=== PATIENT | female | born 2000 | race Caucasian/White ===

== ENCOUNTER 2024-08-02 18:46 | Inpatient (IN) | payer OTHER ==
[2024-08-02 19:44] VITALS: BMI 21.9
[2024-08-02] MEDS ORDERED: BENZOCAINE/MENTHOL (CHLORASEPTIC ) LOZENGE MM PRN (20:46)
[2024-08-02] MEDS ORDERED: BISMUTH SUBSALICYLATE 524 MG/30 ML PO PRN (20:46)
[2024-08-02] MEDS ORDERED: LOPERAMIDE HCL 2 MG CAPSULE PO PRN (20:46)
[2024-08-02] MEDS ORDERED: POLYETHYLENE GLYCOL (HEALTHYLAX) 3350 17 GM PACKET PO PRN (20:46)
[2024-08-02] MEDS ORDERED: MAG HYDROX/AL HYDROX/SIMETH 30 ML UNIT-DOSE CUP PO PRN (20:46)
[2024-08-02] MEDS ORDERED: DICYCLOMINE HCL 10 MG CAPSULE PO PRN (20:46)
[2024-08-02] MEDS ORDERED: guaiFENesin 600 MG TABLET.ER (FP) PO PRN (20:46)
[2024-08-02] MEDS ORDERED: NALOXONE (NARCAN) HCL 4 MG/0.1 ML SPRAY NS PRN (20:46)
[2024-08-02] MEDS ORDERED: ACETAMINOPHEN 325 MG TABLET (FP) PO PRN (20:46)
[2024-08-02] MEDS ORDERED: ONDANSETRON *ODT* 4 MG TABLET SL PRN (20:46)
[2024-08-02] MEDS ORDERED: BENZONATATE 200 MG CAPSULE PO PRN (20:46)
[2024-08-02] MEDS ORDERED: cloNIDine HCL 0.1 MG TABLET PO PRN (20:49)
[2024-08-02] MEDS ORDERED: methaDONE HCL 10 MG TABLET (FOR DETOX USE ONLY) PO PRN (20:49)
[2024-08-02] MEDS ORDERED: MELATONIN 5 MG TABLETS ONE (21:17)
[2024-08-02] MEDS ORDERED: methaDONE HCL 10 MG TABLET (FOR DETOX USE ONLY) ONE (21:17)
[2024-08-02] MEDS: methaDONE HCL 10 MG TABLET (FOR DETOX USE ONLY) PO ONE (21:22)
[2024-08-02] MEDS: THIAMINE 100 MG TABLET PO SCH (21:29)
[2024-08-02] MEDS: MELATONIN 5 MG TABLETS PO SCH (21:29)
[2024-08-02] MEDS: METHOCARBAMOL 500 MG TABLET PO PRN (21:53)
[2024-08-02] MEDS: IBUPROFEN 600 MG TABLET (FP) PO PRN (21:53)
[2024-08-03] MEDS: PRENATAL VITAMINS W/ FOLIC ACID TABLET (FP) PO SCH (09:04)
[2024-08-03 14:16] LABS: HEMATOCRIT 49.1 % (32.4-45.2); HEMOGLOBIN 15.9 GM/dL (10.7-15.3); MCH 28.8 pg (25.7-33.7); MCHC 32.5 g/dl (32.0-36.0); MEAN CELL VOLUME 88.6 fl (80-96); MEAN PLT VOLUME 7.6 fl (7.5-11.1); PLATELET COUNT 417 10^3/uL (134-434); RBC 5.54 M/mm3 (3.60-5.2)
[2024-08-03 14:58] LABS: CHLORIDE 102 mmol/L (98-107); POTASSIUM 4.6 mmol/L (3.5-5.1); SODIUM 136 mmol/L (136-145)
[2024-08-03 15:08] LABS: ALBUMIN 4.5 g/dl (3.4-5.0); ANION GAP 6 mmol/L (4-13); CALCIUM 10.3 mg/dL (8.5-10.1); CO2 29 mmol/L (21-32); GLUCOSE,RANDOM 88 mg/dL (74-106)
[2024-08-03 15:11] LABS: CREATININE 1.2 mg/dL (0.55-1.3); SGOT/AST 22 U/L (15-37); SGPT/ALT 21 U/L (13-61)
[2024-08-03 15:13] LABS: BILIRUBIN,TOTAL 0.7 mg/dL (0.2-1); TOT PROT 7.8 g/dl (6.4-8.2)
[2024-08-03 15:14] LABS: ALK PHOS 103 U/L (45-117)
[2024-08-03] MEDS: MELATONIN 5 MG TABLETS PO SCH (22:05)
[2024-08-03] MEDS: BUPRENORPHINE/NALOXONE 0.5 MG/0.125 MG FILM SL ONE (22:05)
[2024-08-04] MEDS: IBUPROFEN 400 MG TABLET (FP) PO PRN (07:52)
[2024-08-04] MEDS ORDERED: BUPRENORPHINE/NALOXONE 8 MG/2 MG FILM PACKET SL SCH (10:00)
[2024-08-04] MEDS: methaDONE HCL 10 MG TABLET (FOR DETOX USE ONLY) PO ONE (10:09)
[2024-08-04] MEDS: BUPRENORPHINE/NALOXONE 0.5 MG/0.125 MG FILM SL SCH (10:09)
[2024-08-04] MEDS: MAGNESIUM HYDROX 2400MG/30ML ORAL SUSPENSION 30 ML CUP PO PRN (10:31)
[2024-08-04] MEDS: NICOTINE POLACRILEX 2 MG GUM BC PRN (19:58)
[2024-08-05] MEDS: QUEtiapine FUMARATE 25 MG TABLET PO SCH (00:03)
[2024-08-05] MEDS: SUVOREXANT 10 MG TABLET PO PRN (00:04)
[2024-08-05] MEDS: BUPRENORPHINE/NALOXONE 2 MG/0.5 MG FILM PACKET SL SCH (09:37)
[2024-08-05] MEDS: NICOTINE 21 MG/24 HOURS TOPICAL PATCH TD SCH (12:58)
[2024-08-05] MEDS: hydrOXYzine PAMOATE 25 MG CAPSULE (FP) PO PRN (23:48)
[2024-08-06] MEDS: methaDONE HCL 10 MG TABLET (FOR DETOX USE ONLY) PO ONE (09:18)
[2024-08-06] MEDS: BUPRENORPHINE/NALOXONE 4 MG/1 MG FILM PACKET SL SCH (09:19)
[2024-08-07 06:50] VITALS: TEMP 97.6
[2024-08-07] MEDS: BUPRENORPHINE/NALOXONE 8 MG/2 MG FILM PACKET SL SCH (09:50)
[2024-08-07 09:52] VITALS: BP 133/76; PULSE 86; RESP 28
[2024-08-07] MEDS ORDERED: BUPRENORPHINE/NALOXONE 8 MG/2 MG FILM PACKET SL SCH (10:00)
[2024-08-07] MEDS: NALOXONE (NYS OPIOID OVERDOSE PROGRAM) 4 MG/0.1 ML SPRAY NS SCH (10:39)
[2024-08-07 11:12] LABS: BASO % 0.8 % (0-2.0); EOS % 1.2 % (0-4.5); HEMATOCRIT 43.4 % (32.4-45.2); HEMOGLOBIN 14.4 GM/dL (10.7-15.3); LYMPH % 27.2 % (8-40); MCH 28.9 pg (25.7-33.7); MCHC 33.3 g/dl (32.0-36.0); MEAN CELL VOLUME 86.8 fl (80-96); MEAN PLT VOLUME 7.7 fl (7.5-11.1); MONO % 7.8 % (3.8-10.2); PLATELET COUNT 337 10^3/uL (134-434); RDW 12.6 % (11.6-15.6); WHITE BLOOD COUNT 9.6 K/mm3 (4.0-10.0)
[2024-08-08] MEDS ORDERED: BUPRENORPHINE/NALOXONE 8 MG/2 MG FILM PACKET SL SCH (06:00)
== END 2024-08-07 11:15 | disposition home or self-care (01) | DRG 773 ==
LOC: YASAS 18:46 → Y6N 20:58
PROVIDERS: ADMIT Allergy & Immunology; ATTEND Surgery
PROC: HZ2ZZZZ Detoxification Services for Substance Abuse Treatment (ICD-10-PCS; principal; 2024-08-02)
DX: F11.23 Opioid dependence with withdrawal (principal); F32.9 Major depressive disorder, single episode, unspecified; F41.9 Anxiety disorder, unspecified; F43.10 Post-traumatic stress disorder, unspecified; G47.00 Insomnia, unspecified; Z87.891 Personal history of nicotine dependence
CPT/HCPCS: 36415; 80053; 80305; 80307; 81025; 85025; 85027; 86780; 93005; 93010